=== PATIENT | male | born 1945 | race Caucasian/White ===

== ENCOUNTER → 2017-07-22 | Outpatient (CLI) | payer OTHER ==
[~2017-07-22] MED LIST: ALAVERT10 MG PO; ALLERGY10 M2 PO; ASPIRIN325 PO; CARDIZEM CD240 MG PO; CO Q-10100 MG PO; COLACE 100 MG100 MG PO; COQ-10100 MG PO; CRESTOR5 MG PO; ENALAPRIL MALEA20 MG PO; FISH OIL 1,001000 MG PO; IMITREX; LOSARTAN-HCTZ1 EAC3 PO; MOBIC15 MG PO; NORCO 7.5-3251 EACH PO; TRAMADOL-ACETA1 EACH PO; ULTRACET TABLE1 EACH PO
[2017-07-22 11:14] LABS: HEMATOCRIT 49.5 % (42.0-52.0); HEMOGLOBIN 16.9 gm/dL (14.0-18.0); MCH 30.6 pg (26.0-34.0); MCHC 34.1 g/dL (28.0-37.0); MCV 89.9 fL (80.0-100.0); RBC 5.5 mil/uL (4.50-6.00); RDW 14.6 % (10.5-14.5); WBC 8.1 thou/uL (4.0-11.0)
[2017-07-22 11:24] LABS: CALCIUM 9.5 mg/dL (8.5-10.1); CREATININE 1.3 mg/dL (0.7-1.3); POTASSIUM 3.8 mmol/L (3.5-5.1)
[2017-07-22 11:25] LABS: PROTIME 10.7 Seconds (9.3-11.4)
== END ==
LOC: RAD 08:51
PROVIDERS: Radiology Vascular & Interventional Radiology
DX: M51.36 Other intervertebral disc degeneration, lumbar region (principal); M54.42 Lumbago with sciatica, left side; R79.1 Abnormal coagulation profile